=== PATIENT | female | born 1940 | race Caucasian/White ===

== ENCOUNTER 2021-08-31 13:10 | Emergency (ER) | payer MEDICARE ==
[2021-08-31 13:23] VITALS: RESP 18; TEMP 98.2
[2021-08-31] MEDS ORDERED: SODIUM CHLORIDE 0.9% 1,000 ML IV STA (13:40)
[2021-08-31] MEDS ORDERED: ACETAMINOPHEN TAB 325 MG TAB PO STA (13:56)
--- NOTE | 2021-08-31 13:57 | ED ---
General Adult HPI - General Chief complaint: Upper Respiratory Infection Stated complaint: Covid+ Cough Time Seen by Provider: 08/31/21 13:31 Source: patient, family, RN notes reviewed Mode of arrival: wheelchair Limitations: no limitations - History of Present Illness Initial comments: 81-year-old female presents to the emergency room for a chief complaint of wanting monoclonal antibodies. Patient is COVID-19 positive. Symptoms started August 28 which is the same day she tested positive. Patient has had body aches as well as nausea and diarrhea. Has not had much of an appetite. No shortness of breath. daughter states they are here for antibody infusion. Patient has no other complaints at this time including shortness of breath, chest pain, abdominal pain, nausea or vomiting, headache, or visual changes. - Related Data Previous Rx's Medication Instructions Recorded Ondansetron [Zofran ODT] 4 mg PO Q8HR PRN #15 tab 08/31/21 Allergies Allergy/AdvReac Type Severity Reaction Status Date / Time Sulfa (Sulfonamide Allergy Rash/Hives Verified 08/31/21 13:23 Antibiotics) Review of Systems ROS Statement: Those systems with pertinent positive or pertinent negative responses have been documented in the HPI. ROS Other: All systems not noted in ROS Statement are negative. Past Medical History Additional Past Medical History / Comment(s): blood disorder - high platelets History of Any Multi-Drug Resistant Organisms: None Reported Past Surgical History: Orthopedic Surgery Additional Past Surgical History / Comment(s): knee surgery Past Psychological History: No Psychological Hx Reported Smoking Status: Never smoker Past Alcohol Use History: None Reported Past Drug Use History: None Reported General Exam Limitations: no limitations General appearance: alert, in no apparent distress Head exam: Present: atraumatic Eye exam: Present: normal appearance, PERRL, EOMI. Absent: scleral icterus, conjunctival injection ENT exam: Present: normal exam, mucous membranes moist Neck exam: Present: normal inspection, full ROM. Absent: tenderness Respiratory exam: Present: normal lung sounds bilaterally. Absent: respiratory distress, wheezes Cardiovascular Exam: Present: regular rate, normal rhythm, normal heart sounds GI/Abdominal exam: Present: soft, normal bowel sounds. Absent: distended, tenderness Neurological exam: Present: alert Course Vital Signs 08/31/21 13:15 Temperature 98.2 F Pulse Rate 75 Respiratory 18 Rate Blood Pressure 128/75 O2 Sat by Pulse 97 Oximetry Medical Decision Making - Medical Decision Making Vitals are stable. Patient is well-appearing. No respiratory distress. CBC unremarkable. CMP does show some evidence of dehydration. Patient was given a liter of fluid. Patient is already on Decadron and albuterol.She is taking azithromycin. She was given monoclonal antibodies. Patient is stable for discharge home. Will return here for any worsening symptoms. I did discuss stopping the azithromycin as this may help with the diarrhea she is having. - Lab Data Result diagrams: 08/31/21 14:09 08/31/21 14:09 Lab Results 08/31/21 08/31/21 Range/Units 14:09 14:09 WBC 3.3 L (3.8-10.6) k/uL RBC 3.42 L (3.80-5.40) m/uL Hgb 12.3 (11.4-16.0) gm/dL Hct 36.0 (34.0-46.0) % MCV 105.1 H (80.0-100.0) fL MCH 35.9 H (25.0-35.0) pg MCHC 34.2 (31.0-37.0) g/dL RDW 17.1 H (11.5-15.5) % Plt Count 261 (150-450) k/uL MPV 7.8 Neutrophils % 77 % Lymphocytes % 15 % Monocytes % 5 % Eosinophils % 1 % Basophils % 0 % Neutrophils # 2.5 (1.3-7.7) k/uL Lymphocytes # 0.5 L (1.0-4.8) k/uL Monocytes # 0.2 (0-1.0) k/uL Eosinophils # 0.0 (0-0.7) k/uL Basophils # 0.0 (0-0.2) k/uL Anisocytosis Slight Macrocytosis Moderate Sodium 133 L (137-145) mmol/L Potassium 4.2 (3.5-5.1) mmol/L Chloride 105 (98-107) mmol/L Carbon Dioxide 24 (22-30) mmol/L Anion Gap 4 mmol/L BUN 21 H (7-17) mg/dL Creatinine 0.75 (0.52-1.04) mg/dL Est GFR (CKD-EPI)AfAm 87 (>60 ml/min/1.73 sqM) Est GFR (CKD-EPI)NonAf 75 (>60 ml/min/1.73 sqM) Glucose 122 H (74-99) mg/dL Calcium 8.5 (8.4-10.2) mg/dL Disposition Clinical Impression: COVID-19, Nausea, Diarrhea Disposition: HOME SELF-CARE Condition: Good Instructions (If sedation given, give patient instructions): Coronavirus Disease 2019 (COVID-19) Additional Instructions: Continue steroid and albuterol as directed. Give Zofran as needed for nausea. I would discontinue the azithromycin as this could be contributing to the diarrhea. Follow up with patient's doctor. Return to the emergency room for any worsening symptoms. Prescriptions: Ondansetron [Zofran ODT] 4 mg PO Q8HR PRN #15 tab PRN Reason: Nausea Is patient prescribed a controlled substance at d/c from ED?: No Referrals: Arleen Edwards MD [STAFF PHYSICIAN] - 1-2 days Time of Disposition: 15:12
[2021-08-31] MEDS ORDERED: CASIRIVIMAB (REGN10933) (EUA) 600 MG, IMDEVIMAB (REGN10987) (EUA) 600 MG in SODIUM CHLO... IVPB ONE (14:15)
[2021-08-31] MEDS ORDERED: SODIUM CHLORIDE 0.9% 50 ML IVPB ONE (14:15)
[2021-08-31 14:21] LABS: Anisocytosis Slight; Basophils % (A) 0 %; Eosinophils % (A) 1 %; HGB 12.3 gm/dL (11.4-16.0); Lymphocytes # (A) 0.5 k/uL (1.0-4.8); Lymphocytes % (A) 15 %; MCH 35.9 pg (25.0-35.0); MCHC 34.2 g/dL (31.0-37.0); MCV 105.1 fL (80.0-100.0); Macrocytosis Moderate; Mean Platelet Volume 7.8; Monocytes # (A) 0.2 k/uL (0-1.0); Monocytes % (A) 5 %; Neutrophils # (A) 2.5 k/uL (1.3-7.7); Neutrophils % (A) 77 %; Platelet Count 261 k/uL (150-450); RBC 3.42 m/uL (3.80-5.40); RDW 17.1 % (11.5-15.5); WBC 3.3 k/uL (3.8-10.6)
[2021-08-31 14:32] LABS: Calcium 8.5 mg/dL (8.4-10.2); Potassium 4.2 mmol/L (3.5-5.1)
[2021-08-31] MEDS ORDERED: ONDANSETRON 4 MG/2 ML VIAL IVP STA (14:35)
[2021-08-31 15:20] VITALS: BP 145/79; PULSE 62
== END 2021-08-31 16:47 | disposition home or self-care (01) ==
LOC: EC 13:10
DX: U07.1 COVID-19 (principal); Z88.2 Allergy status to sulfonamides
CPT/HCPCS: 36415; 80048; 85025; 99284; 96365; 96375; J2405; Q0243